=== PATIENT | female | born 1985 | race Caucasian/White ===

== ENCOUNTER → 2018-06-17 | Outpatient (CLI) | payer BC ==
[~2018-06-17] MED LIST: ACHD5005 PO; DOCU100C37 PO; IBUP-1773 PO; PREN1TAB71 PO
--- NOTE | 2018-06-17 13:27 | Diagnostic Imaging Report ---
INDICATION: Undergoing anatomical survey during normal . TECHNIQUE: Multiple real-time grayscale images were obtained over the gravid uterus. COMPARISON: None. FINDINGS: Single viable intrauterine currently in transverse orientation. Normal amount of amniotic fluid. Placenta is posterior somewhat low-lying, approximately 1.4 cm from the cervix. No definitive evidence for previa. The visualized anatomical structures including kidneys, bladder, stomach, intracranial structures, four-chamber heart, three-vessel cord and cord insertion site as well as spine appear unremarkable. There are echogenic foci at the left ventricle of the heart. Maternal adnexa are not imaged. Biometrical measurements are as follows: Biparietal 4.74 cm, age 20 weeks 3 days. Head circumference 17.64 cm, age 20 weeks 1 days. Abdominal circumference 15.51 cm, age 20 weeks 5 days. Femur length 3.2 cm, age 20 weeks 0 days. Sonographic estimate age: 20 weeks 3 days. Sonographic estimated date of delivery: 11/01/18. Estimated Weight: 348 gm (+/- 51 gm). LMP percentile: 40%. heart rate: 150 beats per minute. number: 1 of 1. IMPRESSION: 1. Single viable intrauterine currently in transverse orientation. Sonographically estimated age of 20 weeks 3 days for an estimated date of delivery November 01, 2018. 2. Echogenic foci at the left ventricle may be of no significance. The anatomical assessment is otherwise unremarkable. Dictated by: Dictated on workstation # [id number]
== END ==
LOC: RAD 09:48
PROVIDERS: ATTEND Obstetrics & Gynecology
DX: Z36.89 Encounter for other specified antenatal screening (principal); Z3A.20 20 weeks gestation of pregnancy
CPT/HCPCS: 76805

== ENCOUNTER 2018-10-18 05:40 | Outpatient (CLI) | payer BC ==
[~2018-10-18] VITALS: Ht 154.9 cm; Wt 87.1 kg
[2018-10-18] MEDS ORDERED: PREN1TAB18 PO (09:49)
== END 2018-10-18 12:26 | disposition home or self-care (01) ==
LOC: PREOP 05:40
PROVIDERS: ATTEND Obstetrics & Gynecology
DX: Z01.818 Encounter for other preprocedural examination (principal)

== ENCOUNTER 2018-10-25 05:53 | Inpatient (IN) | payer BC ==
[~2018-10-25] VITALS: Ht 154.9 cm; Wt 88.6 kg
[2018-10-25] VITALS (10 sets, daily range): BP systolic 91–133; BP diastolic 37–83
[~2018-10-25 05:53] MED LIST changes: +CITRIC ACID/SOB CIT (BICITRA) 30 ML UDC ONE; +FAMOTIDINE 20MG/2ML IV (PEPCID) ONE; +METOCLOPRAMIDE INJ 10 MG/2 ML (REGLAN) ONE; +PREN1TAB18 PO; +ceFAZolin 2 GM/50 ML NS 50 ML ONE
--- NOTE | 2018-10-25 06:00 | NUR ---
MADELINE CHAKRABORTY presented to unit via from ED, accompanied by s/o, with c/o PREVIOUS. MADELINE CHAKRABORTY weighed, gowned, voided, and to bed. EFHM and TOCO applied, VS taken. MADELINE CHAKRABORTY oriented to bed controls, call light, TV, heat, and A/C controls.
[2018-10-25] MEDS ORDERED: CITRIC ACID/SOB CIT (BICITRA) 30 ML UDC PO ONE (06:15)
[2018-10-25] MEDS ORDERED: METOCLOPRAMIDE INJ 10 MG/2 ML (REGLAN) IV ONE (06:15)
[2018-10-25] MEDS ORDERED: FAMOTIDINE 20MG/2ML IV (PEPCID) IV ONE (06:15)
[2018-10-25] MEDS ORDERED: ceFAZolin 2 GM/50 ML NS 50 ML IV ONE (06:15)
[2018-10-25] MEDS: LACTATED RINGERS 1,000 ML IV PRN ×3 (06:29→07:09)
[2018-10-25 06:32] LABS: BASOPHILS % (AUTO) 0 % (0-10); EOSINOPHILS # (AUTO) 0.1 10^3/uL (0.0-0.3); EOSINOPHILS % (AUTO) 1 % (0-10); HEMATOCRIT 38 % (35-52); HEMOGLOBIN 12.7 G/DL (11.5-16.0); LYMPHOCYTES # (AUTO) 2.3 X 10^3 (1.0-4.0); LYMPHOCYTES % (AUTO) 23 % (12-44); MEAN CORPUSCULAR HEMOGLOBIN 29 PG (25-34); MEAN CORPUSCULAR HGB CONC 34 G/DL (32-36); MEAN CORPUSCULAR VOLUME 87 FL (80-99); MEAN PLATELET VOLUME 12.2 FL (7.4-10.4); MONOCYTES % (AUTO) 9 % (0-12); NEUTROPHILS # (AUTO) 6.8 X 10^3 (1.8-7.8); NEUTROPHILS % (AUTO) 67 % (42-75); PLATELET COUNT 205 10^3/uL (130-400); RED CELL DISTRIBUTION WIDTH 13.6 % (10.0-14.5); WHITE BLOOD COUNT 10.2 10^3/uL (4.3-11.0)
[2018-10-25] MEDS ORDERED: fentaNYL INJECTION 100 MCG/2 ML AMP ONE (07:04)
[2018-10-25] MEDS ORDERED: BUPIVACAINE 0.5% 30 ML (SENSORCAINE) VIAL ONE (07:04)
[2018-10-25] MEDS ORDERED: OXYTOCIN/NORMAL SALINE 1,000 ML IV ONE (07:16)
--- NOTE | 2018-10-25 07:17 | History & Physical-OB ---
OB - Chief Complaint & HPI Date/Time Date of Admission: Date of Admission: Oct 25, 2018 at 05:53 Date seen by a Provider: Oct 25, 2018 Time Seen by a Provider: 07:00 Chief Complaint/History OB-Reason for Admission/Chief: Section Hx : 2 Hx Para: 1 Expected Date of Delivery: Nov 01, 2018 Gestational Age in Weeks: 39 Indication for : desires repeat Admission Nurse Assessment Rev: Yes History of Labs A pos Antibody neg RI RPR NR HBsAg NR HIV NR GC neg GBS neg Allergies and Home Medications Allergies Coded Allergies: No Known Drug Allergies (Unverified , 10/18/18) Home Medications Vit/Iron Fumarate/FA 1 Each Tablet, 1 EACH PO DAILY, (Reported) Patient Home Medication List Home Medication List Reviewed: Yes OB - History Hx of Present Care: Yes Ultrasounds: Normal mid trimester US Obstetrical Complications: None Medical Complications: None Delivery History Hx Blood Disorders: No Adverse Rxn to Tranfusion: No (N/A) Patient Past Medical History na Social History/Family History HIV/AIDS: No Sexually Transmitted Disease: No Alcohol Use: Denies Use Recreational Drug Use: No Immunizations Hepatitis A: Yes Hepatitis B: Yes Tetanus Booster (TDap): Less than 5yrs Date of Influenza Vaccine: Jan 04, 2015 OB - Admission Exam Physical Exam Vitals: Vital Signs 10/25/18 06:37 Temp 97.6 Pulse 81 Resp 18 B/P (MAP) 122/82 (95) O2 Delivery Room Air HEENT: NCAT Heart: Rhythm Normal Lungs: Clear Abdomen: Gravid Extremities: Normal Reflexes: Normal Heart Rate: 130's Accelerations: Accelerations Present Decelerations: No Decelerations Short Term Variability: Present Care Home Variability: Average (6-25) Contractions on Admission: 6-10 Minutes Apart Labs Laboratory Tests Test 10/25/18 06:20 Range/Units White Blood Count 10.2 4.3-11.0 10^3/uL Red Blood Count 4.38 4.35-5.85 10^6/uL Hemoglobin 12.7 11.5-16.0 G/DL Hematocrit 38 35-52 % Mean Corpuscular Volume 87 80-99 FL Mean Corpuscular Hemoglobin 29 25-34 PG Mean Corpuscular Hemoglobin Concent 34 32-36 G/DL Red Cell Distribution Width 13.6 10.0-14.5 % Platelet Count 205 130-400 10^3/uL Mean Platelet Volume 12.2 H 7.4-10.4 FL Neutrophils (%) (Auto) 67 42-75 % Lymphocytes (%) (Auto) 23 12-44 % Monocytes (%) (Auto) 9 0-12 % Eosinophils (%) (Auto) 1 0-10 % Basophils (%) (Auto) 0 0-10 % Neutrophils # (Auto) 6.8 1.8-7.8 X 10^3 Lymphocytes # (Auto) 2.3 1.0-4.0 X 10^3 Monocytes # (Auto) 1.0 0.0-1.0 X 10^3 Eosinophils # (Auto) 0.1 0.0-0.3 10^3/uL Basophils # (Auto) 0.0 0.0-0.1 10^3/uL OB - Assessment/Plan/Diagnosis Assessment Assessment: section Admission Dx 33 yo @ 39 weeks Previous GBS neg Admission Status: Inpatient Order (span 2 midnights) Reason for Inpatient Admission: Repeat Plan Plan: Section STEVIE VÁSQUEZ DO Oct 25, 2018 07:17
[2018-10-25] MEDS ORDERED: OXYTOCIN/NORMAL SALINE 500 ML IV SCH (07:19)
--- NOTE | 2018-10-25 07:23 | Discharge Inst-Women's Service ---
Discharge Inst-Women's Serv Depart Medication/Instructions New, Converted or Re-Newed RX: RX on Chart Final Diagnosis POD 2 RLTCS Consults/Follow Up Additional Follow Up: Yes Orders/Referrals Dr. Lin in 7-10 days and in 6 weeks Activity Activity: Activity as Tolerated Driving Instructions: No Driving for 1 Week NO SMOKING: NO SMOKING Nothing Inside Vagina: No Douching, No [place], No Tampons Diet Discharge Diet: No Restrictions Symptoms to Report to : Bleeding Excessive, Pain Increased, Fever Over 101 Degrees F, Vaginal Bleeding Increase, Questions/Concerns For Any Problems or Questions: Contact Your Physician Skin/Wound Care Infection Signs and Symptoms: Increased Redness, Foul Odor of Wound, Increased Drainage, Skin Itchy or Has a Rash, Increased Swelling, Temperature Above 101 F Operative Area Clean and Dry: Keep Incision Clean/Dry Stitches/[place]/Dermabond: Dermabond, Care of Stitches Bathing Instructions: STEVIE Davies DO Oct 25, 2018 07:23
[2018-10-25] MEDS ORDERED: ACHD5005 PO (07:25)
[2018-10-25] MEDS ORDERED: DOCU100C37 PO (07:25)
[2018-10-25] MEDS ORDERED: IBUP-844 PO (07:25)
[2018-10-25] MEDS ORDERED: ONDANSETRON 4 MG/2 ML (SDV) Z0FRAN IVP PRN (07:30)
[2018-10-25] MEDS ORDERED: MEASLES,MUMPS,RUBELLA 1 EA INJ SC SCH (07:30)
[2018-10-25] MEDS ORDERED: TETANUS,DIPTH,PERTUSS P/F (BOOSTRIX) 0.5 ML VIAL IM SCH (07:30)
--- NOTE | 2018-10-25 10:01 | NUR ---
RT notified of IS ordered for pt.
[2018-10-25] MEDS: KETOROLAC 30 MG/ML VIAL IV SCH ×2 (10:35→17:30)
--- NOTE | 2018-10-25 10:40 | NUR ---
Transferred via bed to room 308. Oriented to room, call light and surroundings. visitors to bedside. IV fluids pitocin infusing to pump as ordered.
[2018-10-25] MEDS ORDERED: CATHETER FLUSH 10 ML SYR IV SCH (14:00)
[2018-10-25] MEDS: HYDROcodone/APAP 5 MG/325 MG (LORTAB) TAB PO PRN ×2 (14:09→21:02)
[2018-10-25] MEDS: METOCLOPRAMIDE 10 MG (REGLAN) TAB PO SCH (14:11)
--- NOTE | 2018-10-25 14:15 | NUR ---
Assisted up to void, void, pericare pad changed and back to bed.
--- NOTE | 2018-10-25 16:24 | OPERATIVE REPORT ---
DATE OF SERVICE: 10/25/2018 PREOPERATIVE DIAGNOSES: 1. A 33-year-old G2, P1 at 39 weeks gestation. 2. Previous section. POSTOPERATIVE DIAGNOSES: 1. A 33-year-old G2, P1 at 39 weeks gestation. 2. Previous section. PROCEDURE: Repeat low transverse section. SURGEON: Ramon Lin DO. ANESTHESIA: Spinal. ESTIMATED BLOOD LOSS: 500 mL. URINE OUTPUT: 75 mL clear at the end of the procedure. FLUIDS: 1100 mL of lactated Ringer solution. FINDINGS: A live female infant weighing 8 pounds 14 ounces, Apgars of 8 and 9. Grossly normal appearing uterus, bilateral fallopian tubes and ovaries with multiple subserosal fibroids that are under 2 cm in diameter. SPECIMENS SENT: None. INDICATIONS FOR PROCEDURE: This 33-year-old female is a patient who had sought care in my office. They had been uncomplicated with the exception of a previous section as well as an elevated 1-hour glucose tolerance test, 3 hour was within normal limits. Otherwise, she had no issues throughout her . She desired repeat . Risk of this was reviewed with the patient versus proceeding with the back or trial of labor. After all of her questions were answered in the care visits, she was counseled extensively about risk, recovery timeframe, which she was familiar with her previous . Risks were again reviewed in the preoperative area and after all her questions were answered, consent was obtained and the patient was taken to the operating room. OPERATIVE REPORT IN DETAIL: Once in the operating room, spinal anesthesia was found to be adequate. She was placed in supine position with leftward tilt, prepped and draped in normal sterile fashion. A timeout was performed. A Pfannenstiel skin incision was then made through the previously existing scar using knife and carried down to the underlying fascia using Bovie cautery. Fascial incision extended laterally using Bovie cautery. Superior aspect of the fascial incision was then grasped with Micha clamps, tented upward and dissected off the underlying rectus muscles. The inferior aspect of the fascial incision was then grasped with Micha clamps, tented upward and dissected off the underlying rectus muscles. The rectus muscle was then dissected down the midline using Metzenbaum scissors, which exposed the peritoneum, which I entered bluntly and extended using blunt traction. I placed an Jose ring retractor into the peritoneal incision, which offers excellent lateral sidewall retraction. I then identified the lower uterine segment, which was found to be thinned out. I made a low transverse incision into the uterus until membranes were visualized, at which point I extended the uterine incision laterally and superiorly using bandage scissors. Amniotomy was performed during the process of doing this. Clear fluid was noted. The was found in the vertex presentation. With gentle fundal pressure, the 's head was elevated up to the incision, where it was delivered and nares and oropharynx were bulb suctioned. Anterior and posterior shoulders were delivered. was then brought to the operative field, where the cord was doubly clamped and cut and infant was handed off to waiting nurses in attendance. Cord blood was collected. Three vessel cord was intact. Placenta was delivered spontaneously thereafter. IV Pitocin was initiated to facilitate uterine contraction. Uterine fundus became firmer with bimanual massage. Uterus was then exteriorized and cleared of all endometrial clots and debris. I then proceeded with closing the uterine incision using 0 Vicryl suture in running locked fashion. Second layer of imbricating 0 Monocryl was placed. Excellent hemostasis was noted after doing this. I then placed the uterus back within the pelvis and copiously irrigated the pelvis using normal saline. There was no active bleeding noted from any of my dissection planes. I placed Interceed antiadhesive over my low transverse incision and proceeded with closing the peritoneum using 3-0 Vicryl suture in running fashion. The rectus muscle was reapproximated using 3-0 Vicryl suture in interrupted fashion. The fascia was reapproximated using 0 Vicryl suture in running fashion. The subcutaneous tissue was reapproximated using 3-0 plain interrupted subcutaneous stitch and the skin was reapproximated using 4-0 Monocryl in a running subcuticular. Dermabond was applied to the incision and sterile dressing with adhesive white tape. The patient tolerated the procedure well and was taken to recovery area in stable condition. Lap and sponge counts were correct at the end of the procedure. Instrument counts were correct as well. Two grams of Ancef was given preoperatively for infection prophylaxis. Job ID: [id number] DocumentID: [id number] Dictated Date: 10/25/2018 08:56:35 Sexual Assault Counselor Date: 10/25/2018 16:24:34 Dictated By: DO RUSSELL DAY
--- OUTSIDE RECORDS SUMMARY | 2018-10-25 17:01 | XMS REPORT ---
Author Author Shayy Norton [facility] Address [address] [place], [place] [id number] Care Team Providers Care It Business Systems Analyst Name Role Phone Shayy Norton PCP Unavailable Allergies and Adverse Reactions Name Reaction Notes NO KNOWN DRUG ALLERGIES Plan of Treatment Not available. Medications Active Name Start Date Estimated Completion Date SIG Comments ketoconazole 2 % topical shampoo 02/19/2015 apply to the affected area(s), lather, leave in place for 5 minutes, and then rinse off with water by topical route once daily for 1-2 weeks until clear EpiPen 0.3 mg/0.3 mL (1:1,000) injection auto-injector 02/19/2015 inject 0.3 milliliter (0.3 mg) by intramuscular route once as needed for anaphylaxis Name Start Date Expiration Date SIG Comments Bactrim DS 800-160 mg oral tablet 07/26/2012 07/31/2012 take 1 tablet by oral route every 12 hours for 5 days Bactrim DS 800-160 mg oral tablet 11/26/2012 12/06/2012 take 1 tablet by oral route every 12 hours for 10 days Microgestin Fe 1.5/30 (28) 1.5 mg-30 mcg (21)/75 mg (7) oral tablet 12/22/2012 11/23/2013 take 1 tablet by oral route once daily for 28 days Discontinued Name Start Date Discontinued Date SIG Comments Zithromax Z-Vinnie 250 mg oral tablet 04/08/2013 12/03/2013 Take 2 tablets the first day (500 mg) followed by 1 tablet (250 mg) days 2-5. for 5 days Flonase 50 mcg/actuation nasal spray,suspension 04/08/2013 02/19/2015 inhale 1 spray in each nostril by nasal route once daily for 7 days Problem List Description Status Onset *No known medical problems Active Vital Signs Date Time BP-Sys(mm[Hg] BP-Zora(mm[Hg]) HR(bpm) RR(rpm) Temp WT HT HC BMI BSA BMI Percentile O2 Sat(%) 02/19/2015 3:58:00 PM 126 mmHg 72 mmHg 89 bpm 18 rpm 97 F 167.187 lbs 61 in 31.59 kg/m2 1.81 m2 100 % 04/24/2014 9:20:00 AM 103 mmHg 71 mmHg 79 bpm 18 rpm 97.3 F 148 lbs 61 in 27.9641 kg/m 1.6998 m 100 % 12/16/2013 8:27:00 AM 110 mmHg 80 mmHg 70 bpm 18 rpm 97.8 F 149.4 lbs 61 in 28.23 kg/m2 1.71 m2 98 % 12/03/2013 9:08:00 AM 124 mmHg 66 mmHg 64 bpm 18 rpm 96.8 F 150 lbs 61 in 28.342 kg/m 1.7112 m 99 % 04/08/2013 2:06:00 PM 124 mmHg 74 mmHg 93 bpm 18 rpm 97.4 F 151.375 lbs 61 in 28.60 kg/m2 1.72 m2 99 % 12/22/2012 8:35:00 AM 103 mmHg 63 mmHg 83 bpm 18 rpm 97.1 F 142.2 lbs 61 in 26.8682 kg/m 1.6662 m 98 % 11/25/2012 2:38:00 PM 115 mmHg 77 mmHg 98 bpm 20 rpm 98.9 F 148.8 lbs 61 in 28.12 kg/m2 1.70 m2 100 % 07/21/2012 8:35:00 AM 100 mmHg 60 mmHg 82 bpm 20 rpm 97.8 F 150.6 lbs 61 in 28.4553 kg/m 1.7147 m 98 % Social History Name Description Comments Tobacco Never smoker Alcohol rarely History of Procedures Date Ordered Description Order Status 07/21/2012 12:00 AM URINALYSIS AUTO W/O SCOPE Reviewed 07/21/2012 12:00 AM URINE CULTURE/COLONY COUNT Returned 11/25/2012 12:00 AM THER/PROPH/DIAG INJ SC/IM Reviewed 11/25/2012 12:00 AM Decadron, Per 1 Mg [facility]# [address]-70 Reviewed 11/25/2012 12:00 AM Depo-Medrol, Per 80 Mg [facility]#[id number] Reviewed 12/03/2013 12:00 AM THER/PROPH/DIAG INJ SC/IM Reviewed 12/03/2013 12:00 AM Depo-Medrol 80 mg [facility] [place]#[address]-34 Reviewed 12/03/2013 12:00 AM Decadron 8 mg [facility] [place]# [address]-64 Reviewed 12/16/2013 12:00 AM TISSUE EXAM FOR FUNGI Returned 12/16/2013 12:00 AM SMEAR WET MOUNT SALINE/INK Returned 04/24/2014 12:00 AM COMPLETE CBC W/AUTO DIFF WBC Returned 04/24/2014 12:00 AM COMPREHEN METABOLIC PANEL Returned 04/24/2014 12:00 AM ASSAY THYROID STIM HORMONE Returned Results Summary Data and Description Results 12/16/2013 11:38 AM WET PREP NO TRICH SEEN CLUE CELLS NONE SEEN 05/01/2014 8:50 AM TSH 1.960 uIU/mLGLUCOSE 92.0 mg/dLSODIUM 141.0 mmol/LPOTASSIUM 4.20 mmol/LCHLORIDE 106.0 mmol/LCO2 25.0 mmol/LBUN 9.0 mg/dLCREATININE 0.70 mg/dLSGOT/AST 20.0 IU/LSGPT/ALT 26.0 IU/LALK PHOS 63.0 IU/LTOTAL PROTEIN 7.10 g/dLALBUMIN 4.60 g/dLTOTAL BILI 0.80 mg/dLCALCIUM 9.20 mg/dLeGFR >60 mL/min/1.73 m2WBC 7.2 RBC 4.59 HGB 13.40 g/dLHCT 40.0 %MCV 87.0 fLMCH 29.20 pgMCHC 33.50 g/dLRDW CV 12.70 %MPV 10.90 fLPLT 249 %NEUT 61.60 %%LYMP 31.10 %%MONO 6.20 %%EOS 0.80 %%BASO 0.30 %#NEUT 4.44 #LYMP 2.24 #MONO 0.45 #EOS 0.06 #BASO 0.02 History Of Immunizations Not available. History of Past Illness Name Date of Onset Comments *No known medical problems General medical examination; routine general medical examination at a health care facility Jul 21 2012 8:43AM Dysuria Jul 21 2012 8:43AM Wasp sting Nov 25 2012 2:42PM Wasp sting Nov 26 2012 9:14AM General medical examination; routine general medical examination at a health care facility Dec 22 2012 8:41AM Contraception, Oral Prescription Dec 22 2012 8:41AM Sinusitis, Acute Apr 08 2013 2:09PM Upper Respiratory Infections Apr 08 2013 2:09PM Dermatitis Dec 03 2013 9:10AM Sting, wasp Dec 03 2013 9:10AM Routine gynecological examination Dec 16 2013 8:31AM Vaginal Discharge Dec 16 2013 8:31AM Fatigue Apr 24 2014 9:23AM Family planning counseling Apr 24 2014 9:23AM Routine adult health maintenance Apr 24 2014 9:23AM Tinea versicolor Feb 19 2015 4:00PM History of anaphylactic shock Feb 19 2015 4:00PM Payers Insurance Name Company Name Plan Name Plan Number Policy Number Policy Group Number Start Date [facility] [id number] Saturday, 2012 History of Encounters Visit Date Visit Type Provider 02/19/2015 Office visit Shayy Norton PSYCHIATRIC ORDERLY 04/24/2014 Office visit Roxy Vargas PSYCHIATRIC ORDERLY 12/16/2013 Office visit Roxy Vargas PSYCHIATRIC ORDERLY 12/03/2013 Office visit Joel Roberto PA-C 04/08/2013 Office visit Yamile Adamson PSYCHIATRIC ORDERLY 12/22/2012 Office visit Roxy Vargas PSYCHIATRIC ORDERLY 11/25/2012 Office visit Roxy Vargas PSYCHIATRIC ORDERLY 07/21/2012 Office visit Roxy Vargas PSYCHIATRIC ORDERLY
--- OUTSIDE RECORDS SUMMARY | 2018-10-25 17:02 | XMS REPORT | Clinical Summary ---
Author Author Admin, [place] Organization [facility] Address Unknown Phone Unavailable Allergies, Adverse Reactions, Alerts Allergy Name Reaction Description Start Date Severity Status Provider BEE STINGS Critical Active Chase Guaman DO WASP STING Severe Active Chase Saundra Guaman DO Conditions or Problems Problem Name Problem Code Onset Date Status Entry Date Provider Comment Standard Description Annotate SINUSITIS, ACUTE 461.9 Active Baljeet Moreno MD Acute sinusitis, unspecified BMI 35-35.9 Active Chase Guaman DO Body Mass Index 35.0-35.9, adult Morbid obesity due to excess calories 278.00 Active Chase Guaman DO Obesity, unspecified Tinea versicolor 111.0 Active Chase Saundra Guaman DO Pityriasis versicolor Medication List Medication Instructions Start Date Stop Date Generic Name ND Status Provider Patient Instruction VITAMIN TABLET 1 tablet by mouth once daily VIT-FE FUMARATE- FA TABS 52908810771 Active Chase Guaman DO Active AVIANE 0.1-20 MG-MCG ORAL TABLET DIRECTED LEVONORGESTREL- ETHINYL ESTRAD 44212427095 No Longer Active Chase Guaman DO Active PREDNISONE 20 MG ORAL TABLET 1 tab twice daily for 3 day, then one daily for three days PREDNISONE 89277024584 No Longer Active Chase Guaman DO Active AMOXICILLIN 500 MG ORAL CAPSULE 1 tab by mouth 3 times daily AMOXICILLIN 10849390624 No Longer Active Baljeet Moreno MD Active PREDNISONE 20 MG ORAL TABLET 1 tab twice daily for 3 day, then one daily for three days PREDNISONE 20 MG ORAL TABLET 158112 PREDNISONE Inactive AVIANE 0.1-20 MG-MCG ORAL TABLET DIRECTED AVIANE 0.1- 20 MG-MCG ORAL TABLET 302154 LEVONORGESTREL-ETHINYL ESTRAD Inactive AMOXICILLIN 500 MG ORAL CAPSULE 1 tab by mouth 3 times daily AMOXICILLIN 500 MG ORAL CAPSULE 215099 AMOXICILLIN Inactive Vital Signs Date Name Value Unit Range Description blood pressure, diastolic, repeated by physician 70 BP mckeon blood pressure, diastolic 70 mm[Hg] BP mckeon blood pressure, systolic, repeated by physician 115 BP sys blood pressure, systolic 115 mm[Hg] BP sys height E&M 61 [in_us] Bdy height pulse rate E&M 89 /min Heart rate temperature E&M 98.4 [degF] Body temperature weight E&M 186 [lb_av] Weight Measured Diagnostic Results Date Name Value Unit Range Description Office Visit: Establish Care - Chemistry HDL cholesterol, serum, target level 40 mg/dL cholesterol, target level 200 mg/dL triglyceride, target level 150 mg/dL Encounters Code Encounter Date Provider Facility CPT-29544 [id number] Vst-Est Level III 14:15:26 CDT Chase Guaman DO [facility] CPT-45880 Level 3 New Patient 15:51:50 CDT Baljeet Moreno MD [facility]
--- OUTSIDE RECORDS SUMMARY | 2018-10-25 17:02 | XMS REPORT ---
Author Author Shayy Norton [facility] Address [address] [place], [place] [id number] Care Team Providers Care Ton Container Shipper Name Role Phone Shayy Norton PCP Unavailable Shayy Norton PreferredProvider Unavailable Allergies and Adverse Reactions Name Reaction [...] intramuscular route once as needed for anaphylaxis EpiPen 0.3 mg/0.3 mL (1:1,000) injection auto-injector 02/19/2015 inject 0.3 milliliter (0.3 mg) by intramuscular route once as needed for anaphylaxis Diflucan 150 mg oral tablet 01/07/2017 2 tablets po x1 then repeat in 1 week ketoconazole 2 % topical cream 01/07/2017 apply to the affected area(s) by topical route once daily Name Start Date Expiration Date SIG Comments [...] HC BMI BSA BMI Percentile O2 Sat(%) 01/07/2017 2:23:00 PM 116 mmHg 60 mmHg 90 bpm 18 rpm 97 F 171 lbs 61 in 32.31 kg/m2 1.83 m2 99 % 02/19/2015 3:58:00 PM 126 mmHg 72 mmHg 89 bpm 18 rpm 97 F 167.187 lbs 61 in 31.5895 kg/m 1.8066 m 100 % 04/24/2014 9:20:00 AM 103 mmHg 71 mmHg 79 bpm 18 rpm 97.3 F 148 lbs 61 in 27.96 kg/m2 1.70 m2 100 % 12/16/2013 8:27:00 AM 110 mmHg 80 mmHg 70 bpm 18 rpm 97.8 F 149.4 lbs 61 in 28.2286 kg/m 1.7078 m 98 % 12/03/2013 9:08:00 AM 124 mmHg 66 mmHg 64 bpm 18 rpm 96.8 F 150 lbs 61 in 28.34 kg/m2 1.71 m2 99 % 04/08/2013 2:06:00 PM 124 mmHg 74 mmHg 93 bpm 18 rpm 97.4 F 151.375 lbs 61 in 28.6018 kg/m 1.7191 m 99 % 12/22/2012 8:35:00 AM 103 mmHg 63 mmHg 83 bpm 18 rpm 97.1 F 142.2 lbs 61 in 26.87 kg/m2 1.67 m2 98 % 11/25/2012 2:38:00 PM 115 mmHg 77 mmHg 98 bpm 20 rpm 98.9 F 148.8 lbs 61 in 28.1152 kg/m 1.7044 m 100 % 07/21/2012 8:35:00 AM 100 mmHg 60 mmHg 82 bpm 20 rpm 97.8 F 150.6 lbs 61 in 28.46 kg/m2 1.71 m2 98 % Social History Name Description Comments Tobacco Never smoker Alcohol rarely History of Procedures Date Ordered Description Order Status 07/21/2012 12:00 AM URINALYSIS AUTO W/O SCOPE Reviewed 07/21/2012 12:00 AM URINE CULTURE/COLONY COUNT Reviewed 11/25/2012 12:00 AM THER/PROPH/DIAG INJ SC/IM Reviewed 11/25/2012 12:00 AM Decadron, Per 1 Mg [facility]# [address]-10 Reviewed 11/25/2012 12:00 AM Depo-Medrol, Per 80 Mg [facility]#0885-3988-79 Reviewed 12/03/2013 12:00 AM THER/PROPH/DIAG INJ SC/IM Reviewed 12/03/2013 12:00 AM Depo-Medrol 80 mg [facility]#[address]-11 Reviewed 12/03/2013 12:00 AM Decadron 8 mg [facility]# [address]-90 Reviewed 12/16/2013 12:00 AM TISSUE EXAM FOR FUNGI Reviewed 12/16/2013 12:00 AM SMEAR WET MOUNT SALINE/INK Reviewed 04/24/2014 12:00 AM COMPLETE CBC W/AUTO DIFF WBC Reviewed 04/24/2014 12:00 AM COMPREHEN METABOLIC PANEL Reviewed 04/24/2014 12:00 AM ASSAY THYROID STIM HORMONE Reviewed Results Summary Date and Description Results 12/16/2013 11:38 AM WET PREP NO TRICH SEEN CLUE CELLS NONE SEEN 05/01/2014 8:50 AM TSH 1.960 uIU/mLGLUCOSE 92.0 mg/dLSODIUM 141.0 mmol/LPOTASSIUM 4.20 mmol/LCHLORIDE 106.0 mmol/LCO2 25.0 mmol/LBUN 9.0 mg/dLCREATININE 0.70 mg/dLSGOT/AST 20.0 IU/LSGPT/ALT 26.0 IU/LALK PHOS 63.0 IU/LTOTAL PROTEIN 7.10 g/dLALBUMIN 4.60 g/dLTOTAL BILI 0.80 mg/dLCALCIUM 9.20 mg/dLAGE 30 GFR NonAA 98 GFR AA 119 eGFR >60 mL/min/1.73 m2eGFR AA* >60 WBC 7.2 RBC 4.59 HGB 13.40 g/dLHCT 40.0 %MCV 87.0 fLMCH 29.20 pgMCHC 33.50 g/dLRDW SD 41 RDW CV 12.70 %MPV 10.90 fLPLT 249 NRBC# 0.00 NRBC% 0.0 %NEUT 61.60 %%LYMP 31.10 %%MONO 6.20 %%EOS 0.80 %%BASO 0.30 %#NEUT 4.44 #LYMP 2.24 #MONO 0.45 #EOS 0.06 #BASO 0.02 MANUAL DIFF NOT IND History Of Immunizations Not available. History of [...] of anaphylactic shock Feb 19 2015 4:00PM Tinea versicolor Jan 07 2017 2:25PM Payers Insurance Name Company Name Plan Name Plan Number Policy Number Policy Group Number Start Date [facility] [id number] Saturday, 2012 History of Encounters Visit Date Visit Type Provider 01/07/2017 Office visit Shayy Norton RESERVATIONS CLERK 02/19/2015 Office visit Shayy Norton RESERVATIONS CLERK 04/24/2014 Office visit Roxy Vargas RESERVATIONS CLERK 12/16/2013 Office visit Roxy Vargas RESERVATIONS CLERK 12/03/2013 Office visit Joel Roberto PA-C 04/08/2013 Office visit Yamile Adamson RESERVATIONS CLERK 12/22/2012 Office visit Roxy Vargas RESERVATIONS CLERK 11/25/2012 Office visit Roxy Vargas RESERVATIONS CLERK 07/21/2012 Office visit Roxy Vargas RESERVATIONS CLERK
--- OUTSIDE RECORDS SUMMARY | 2018-10-25 17:02 | XMS REPORT | Clinical Summary ---
Author Author Admin, [facility] Organization [facility] Address Unknown Phone Unavailable Allergies, Adverse Reactions, Alerts Allergy Name Reaction Description Start Date Severity Status Provider Allergies Unknown Conditions or Problems Problem Name Problem Code Onset Date Status Entry Date Provider Comment Standard Description Annotate SINUSITIS, ACUTE 461.9 Active Baljeet Moreno MD Acute sinusitis, unspecified Medication List Medication Instructions Start Date Stop Date Generic Name [facility] Status Provider Patient Instruction PREDNISONE 20 MG ORAL TABLET 1 tab twice daily for 3 day, then one daily for three days PREDNISONE 65087866800 Active Baljeet Moreno MD Active AMOXICILLIN 500 MG ORAL CAPSULE 1 tab by mouth 3 times daily AMOXICILLIN 98448905688 Active Blajeet Moreno MD Active AVIANE 0.1-20 MG-MCG ORAL TABLET DIRECTED LEVONORGESTREL-ETHINYL ESTRAD 02038517180 Active Baljeet Moreno MD Active Vital Signs Date Name Value Unit Range Description blood pressure, diastolic 74 mm[Hg] BP mckeon blood pressure, systolic 120 mm[Hg] BP sys pulse rate E&M 105 /min Heart rate temperature E&M 98.6 [degF] Body temperature weight E&M 164 [lb_av] Weight Measured Encounters Code Encounter Date Provider Facility CPT-15995 Level 3 New Patient 15:51:50 CDT Baljeet Moreno MD [facility]
--- OUTSIDE RECORDS SUMMARY | 2018-10-25 17:02 | XMS REPORT | Clinical Summary ---
Author Author Admin, [place] Organization [facility] Address Unknown Phone Unavailable Allergies, Adverse Reactions, [...] mouth once daily VIT-FE FUMARATE- FA TABS 08075593419 Active Chase Guaman DO Active AVIANE 0.1-20 MG-MCG ORAL TABLET DIRECTED LEVONORGESTREL- ETHINYL ESTRAD 14562208353 No Longer Active Chase Guaman DO Active PREDNISONE 20 MG ORAL TABLET 1 tab twice daily for 3 day, then one daily for three days PREDNISONE 03987317142 No Longer Active Chase Guaman DO Active AMOXICILLIN 500 MG ORAL CAPSULE 1 tab by mouth 3 times daily AMOXICILLIN 13995888478 No Longer Active Baljeet Moreno MD Active PREDNISONE 20 MG ORAL TABLET 1 tab twice daily for 3 day, then one daily for three days PREDNISONE 20 MG ORAL TABLET 765379 PREDNISONE Inactive AVIANE 0.1-20 MG-MCG ORAL TABLET DIRECTED AVIANE 0.1- 20 MG-MCG ORAL TABLET 997139 LEVONORGESTREL-ETHINYL ESTRAD Inactive AMOXICILLIN 500 MG ORAL CAPSULE 1 tab by mouth 3 times daily AMOXICILLIN 500 MG ORAL CAPSULE 859392 AMOXICILLIN Inactive Vital Signs Date Name Value [...] mg/dL Encounters Code Encounter Date Provider Facility CPT-90614 [id number] Vst-Est Level III 14:15:26 CDT Chase Guaman DO [facility] CPT-32785 Level 3 New Patient 15:51:50 CDT Baljeet Moreno MD [facility]
--- OUTSIDE RECORDS SUMMARY | 2018-10-25 17:02 | XMS REPORT | Clinical Summary ---
Author Author Admin, [place] Organization [facility] Address Unknown Phone Unavailable Allergies, Adverse [...] to excess calories 278.00 Active Chase Guaman Obesity, unspecified Tinea versicolor 111.0 Active Chase Saundra Guaman DO Pityriasis versicolor Medication List Medication Instructions Start Date Stop Date Generic Name ND Status Provider Patient Instruction VITAMIN TABLET 1 tablet by mouth once daily VIT-FE FUMARATE- FA TABS 31343281826 Active hCase Guaman DO Active AVIANE 0.1-20 MG-MCG ORAL TABLET DIRECTED LEVONORGESTREL- ETHINYL ESTRAD 48097717750 No Longer Active Chase Guaman DO Active PREDNISONE 20 MG ORAL TABLET 1 tab twice daily for 3 day, then one daily for three days PREDNISONE 68303752181 No Longer Active Chase Guaman DO Active AMOXICILLIN 500 MG ORAL CAPSULE 1 tab by mouth 3 times daily AMOXICILLIN 66542211341 No Longer Active Baljeet Moreno MD Active PREDNISONE 20 MG ORAL TABLET 1 tab twice daily for 3 day, then one daily for three days PREDNISONE 20 MG ORAL TABLET 569392 PREDNISONE Inactive AVIANE 0.1-20 MG-MCG ORAL TABLET DIRECTED AVIANE 0.1- 20 MG-MCG ORAL TABLET 466735 LEVONORGESTREL-ETHINYL ESTRAD Inactive AMOXICILLIN 500 MG ORAL CAPSULE 1 tab by mouth 3 times daily AMOXICILLIN 500 MG ORAL CAPSULE 375784 AMOXICILLIN Inactive Vital Signs Date Name Value [...] mg/dL Encounters Code Encounter Date Provider Facility CPT-17804 [id number] Vst-Est Level III 14:15:26 CDT Chase Guaman DO [facility] CPT-74420 Level 3 New Patient 15:51:50 CDT Baljeet Moreno MD [facility]
--- OUTSIDE RECORDS SUMMARY | 2018-10-25 17:02 | XMS REPORT | Clinical Summary ---
Author Author Admin, [facility] Organization [facility] Address Unknown Phone Unavailable Allergies, Adverse Reactions, Alerts Allergy Name Reaction Description Start Date Severity Status Provider Allergies Unknown Conditions or Problems Problem Name Problem Code Onset Date Status Entry Date Provider Comment Standard Description Annotate SINUSITIS, ACUTE 461.9 Active Baljeet Moreno MD Acute sinusitis, unspecified Medication List Medication Instructions Start Date Stop Date Generic Name [facility] Status Provider Patient Instruction PREDNISONE 20 MG ORAL TABLET 1 tab twice daily for 3 day, then one daily for three days PREDNISONE 55445143109 Active Baljeet Moreno MD Active AMOXICILLIN 500 MG ORAL CAPSULE 1 tab by mouth 3 times daily AMOXICILLIN 05787878044 Active Baljeet Moreno MD Active AVIANE 0.1-20 MG-MCG ORAL TABLET DIRECTED LEVONORGESTREL-ETHINYL ESTRAD 28471105482 Active Baljeet Moreno MD Active Vital Signs Date Name Value Unit Range Description blood pressure, diastolic 74 mm[Hg] BP mckeon blood pressure, systolic 120 mm[Hg] BP sys pulse rate E&M 105 /min Heart rate temperature E&M 98.6 [degF] Body temperature weight E&M 164 [lb_av] Weight Measured Encounters Code Encounter Date Provider Facility CPT-02322 Level 3 New Patient 15:51:50 CDT Baljeet Moreno MD [facility]
--- OUTSIDE RECORDS SUMMARY | 2018-10-25 17:02 | XMS REPORT | Clinical Summary ---
Author Author Admin, [facility] Organization [facility] Address Unknown Phone Unavailable Allergies, Adverse Reactions, Alerts Allergy Name Reaction Description Start Date Severity Status Provider Allergies Unknown Conditions or Problems Problem Name Problem Code Onset Date Status Entry Date Provider Comment Standard Description Annotate SINUSITIS, ACUTE 461.9 Active Baljeet Moreno MD Acute sinusitis, unspecified Medication List Medication Instructions Start Date Stop Date Generic Name [facility] Status Provider Patient Instruction PREDNISONE 20 MG ORAL TABLET 1 tab twice daily for 3 day, then one daily for three days PREDNISONE 10138804068 Active Baljeet Moreno MD Active AMOXICILLIN 500 MG ORAL CAPSULE 1 tab by mouth 3 times daily AMOXICILLIN 98437129261 Active Baljeet Moreno MD Active AVIANE 0.1-20 MG-MCG ORAL TABLET DIRECTED LEVONORGESTREL-ETHINYL ESTRAD 75979511693 Active Baljeet Moreno MD Active Vital Signs Date Name Value Unit Range Description blood pressure, diastolic 74 mm[Hg] BP mckeon blood pressure, systolic 120 mm[Hg] BP sys pulse rate E&M 105 /min Heart rate temperature E&M 98.6 [degF] Body temperature weight E&M 164 [lb_av] Weight Measured Encounters Code Encounter Date Provider Facility CPT-03062 Level 3 New Patient 15:51:50 CDT Baljeet Moreno MD [facility]
--- OUTSIDE RECORDS SUMMARY | 2018-10-25 17:02 | XMS REPORT | Clinical Summary ---
Author Author Admin, [place] Organization [facility] Address Unknown Phone Unavailable Allergies, Adverse Reactions, Alerts Allergy Name Reaction Description Start Date Severity Status Provider BEE STINGS Critical Active Chase Guaman DO WASP STING Severe Active Chase Guaman DO Conditions or Problems Problem Name [...] mouth once daily VIT-FE FUMARATE- FA TABS 56414718809 Active Chase Guaman DO Active AVIANE 0.1-20 MG-MCG ORAL TABLET DIRECTED LEVONORGESTREL- ETHINYL ESTRAD 93361187120 No Longer Active Chase Guaman DO Active PREDNISONE 20 MG ORAL TABLET 1 tab twice daily for 3 day, then one daily for three days PREDNISONE 74026453020 No Longer Active Chase Guaman DO Active AMOXICILLIN 500 MG ORAL CAPSULE 1 tab by mouth 3 times daily AMOXICILLIN 78135274920 No Longer Active Baljeet Moreno MD Active PREDNISONE 20 MG ORAL TABLET 1 tab twice daily for 3 day, then one daily for three days PREDNISONE 20 MG ORAL TABLET 169646 PREDNISONE Inactive AVIANE 0.1-20 MG-MCG ORAL TABLET DIRECTED AVIANE 0.1- 20 MG-MCG ORAL TABLET 633942 LEVONORGESTREL-ETHINYL ESTRAD Inactive AMOXICILLIN 500 MG ORAL CAPSULE 1 tab by mouth 3 times daily AMOXICILLIN 500 MG ORAL CAPSULE 803474 AMOXICILLIN Inactive Vital Signs Date Name Value [...] mg/dL Encounters Code Encounter Date Provider Facility CPT-19381 [id number] Vst-Est Level III 14:15:26 CDT Chase Guaman DO [facility] CPT-45019 Level 3 New Patient 15:51:50 CDT Baljeet Moreno MD [facility]
--- OUTSIDE RECORDS SUMMARY | 2018-10-25 17:02 | XMS REPORT | Clinical Summary ---
Author Author Admin, E Organization [facility] Address Unknown Phone Unavailable Allergies, Adverse Reactions, Alerts Allergy Name Reaction Description Start Date Severity Status Provider BEE STINGS Critical Active Chase Saundra Guaman DO WASP STING Severe Active Chase [...] mouth once daily VIT-FE FUMARATE- FA TABS 13627013423 Active Chase Guaman DO Active AVIANE 0.1-20 MG-MCG ORAL TABLET DIRECTED LEVONORGESTREL- ETHINYL ESTRAD 30707410385 No Longer Active Chase Guaman DO Active PREDNISONE 20 MG ORAL TABLET 1 tab twice daily for 3 day, then one daily for three days PREDNISONE 27693758305 No Longer Active Chase Guaman DO Active AMOXICILLIN 500 MG ORAL CAPSULE 1 tab by mouth 3 times daily AMOXICILLIN 47895218693 No Longer Active Baljeet Moreno MD Active PREDNISONE 20 MG ORAL TABLET 1 tab twice daily for 3 day, then one daily for three days PREDNISONE 20 MG ORAL TABLET 173416 PREDNISONE Inactive AVIANE 0.1-20 MG-MCG ORAL TABLET DIRECTED AVIANE 0.1- 20 MG-MCG ORAL TABLET 015512 LEVONORGESTREL-ETHINYL ESTRAD Inactive AMOXICILLIN 500 MG ORAL CAPSULE 1 tab by mouth 3 times daily AMOXICILLIN 500 MG ORAL CAPSULE 517570 AMOXICILLIN Inactive Vital Signs Date Name Value [...] mg/dL Encounters Code Encounter Date Provider Facility CPT-00446 [id number] Vst-Est Level III 14:15:26 CDT Chase Guaman DO [facility] CPT-38852 Level 3 New Patient 15:51:50 CDT Baljeet Moreno MD [facility]
--- OUTSIDE RECORDS SUMMARY | 2018-10-25 17:03 | XMS REPORT | Clinical Summary ---
Author Author Admin, [facility] Organization [facility] Address Unknown Phone Unavailable Allergies, Adverse Reactions, Alerts Allergy Name Reaction Description Start Date Severity Status Provider Allergies Unknown Conditions or Problems Problem Name Problem Code Onset Date Status Entry Date Provider Comment Standard Description Annotate SINUSITIS, ACUTE 461.9 Active Baljeet Moreno MD Acute sinusitis, unspecified Medication List Medication Instructions Start Date Stop Date Generic Name [facility] Status Provider Patient Instruction PREDNISONE 20 MG ORAL TABLET 1 tab twice daily for 3 day, then one daily for three days PREDNISONE 34170071845 Active Baljeet Moreno MD Active AMOXICILLIN 500 MG ORAL CAPSULE 1 tab by mouth 3 times daily AMOXICILLIN 32865854185 Active Baljeet Moreno MD Active AVIANE 0.1-20 MG-MCG ORAL TABLET DIRECTED LEVONORGESTREL-ETHINYL ESTRAD 27090011319 Active Baljeet Moreno MD Active Vital Signs Date Name Value Unit Range Description blood pressure, diastolic 74 mm[Hg] BP mckeon blood pressure, systolic 120 mm[Hg] BP sys pulse rate E&M 105 /min Heart rate temperature E&M 98.6 [degF] Body temperature weight E&M 164 [lb_av] Weight Measured Encounters Code Encounter Date Provider Facility CPT-97839 Level 3 New Patient 15:51:50 CDT Baljeet Moreno MD [facility]
--- OUTSIDE RECORDS SUMMARY | 2018-10-25 17:03 | XMS REPORT | Clinical Summary ---
Author Author Admin, [facility] Organization [facility] Address Unknown Phone Unavailable Allergies, Adverse Reactions, Alerts Allergy Name Reaction Description Start Date Severity Status Provider Allergies Unknown Conditions or Problems Problem Name Problem Code Onset Date Status Entry Date Provider Comment Standard Description Annotate SINUSITIS, ACUTE 461.9 Active Baljeet Moreno MD Acute sinusitis, unspecified Medication List Medication Instructions Start Date Stop Date Generic Name [facility] Status Provider Patient Instruction PREDNISONE 20 MG ORAL TABLET 1 tab twice daily for 3 day, then one daily for three days PREDNISONE 44816541443 Active Baljeet Moreno MD Active AMOXICILLIN 500 MG ORAL CAPSULE 1 tab by mouth 3 times daily AMOXICILLIN 96220883697 Active Baljeet Moreno MD Active AVIANE 0.1-20 MG-MCG ORAL TABLET DIRECTED LEVONORGESTREL-ETHINYL ESTRAD 93627849497 Active Baljeet Moreno MD Active Vital Signs Date Name Value Unit Range Description blood pressure, diastolic 74 mm[Hg] BP mckeon blood pressure, systolic 120 mm[Hg] BP sys pulse rate E&M 105 /min Heart rate temperature E&M 98.6 [degF] Body temperature weight E&M 164 [lb_av] Weight Measured Encounters Code Encounter Date Provider Facility CPT-11217 Level 3 New Patient 15:51:50 CDT Baljeet Moreno MD [facility]
--- OUTSIDE RECORDS SUMMARY | 2018-10-25 17:03 | XMS REPORT | Continuity of Care Document ---
Author Organization Unknown Address Unknown Allergies There is no data. Medications There is no data. Problems Date Dx Coded Attending Type Code Diagnosis Diagnosed By 08/03/2017 J01.90 SINUSITIS, ACUTE 09/06/2018 B36.0 Tinea versicolor 09/06/2018 E66.01 Morbid obesity due to excess calories 09/06/2018 Z68.35 BMI 35-35.9 Procedures There is no data. Results There is no data. Encounters ACCT No. Visit Date/Time Discharge Status Pt. Type Provider Facility Loc./Unit Complaint [id number] 01/07/2017 15:17:00 01/07/2017 23:59:59 CLS Outpatient Shayy Norton [id number] 02/19/2015 16:50:21 02/19/2015 23:59:59 CLS Outpatient Shayy Norton [id number] 04/24/2014 10:12:44 04/24/2014 23:59:59 CLS Outpatient Roxy Vargas [id number] 12/16/2013 09:19:30 12/16/2013 23:59:59 CLS Outpatient Roxy Vargas [id number] 12/03/2013 10:06:06 12/03/2013 23:59:59 CLS Outpatient Joel Roberto [id number] 04/08/2013 14:59:03 04/08/2013 23:59:59 CLS Outpatient Yamile Adamson [id number] 10/22/2018 20:08:36 ACT Unknown [id number] 08/09/2018 07:00:48 08/09/2018 23:59:59 DIS Outpatient STEVIE VÁSQUEZ [facility]
--- NOTE | 2018-10-25 21:00 | NUR ---
pt sitting in bed, holding nb. assessment completed. pt requesting pain meds at this time. Lortab given. pt denies any further needs. will continue to monitor.
[2018-10-25] MEDS ORDERED: IBUPROFEN 600 MG (MOTRIN) TAB PO ONE (23:08)
[2018-10-25] MEDS: IBUPROFEN 600 MG (MOTRIN) TAB PO SCH (23:30)
[2018-10-26] MEDS: METOCLOPRAMIDE 10 MG (REGLAN) TAB PO SCH ×4 (01:50→23:52)
[2018-10-26] MEDS: HYDROcodone/APAP 5 MG/325 MG (LORTAB) TAB PO PRN ×2 (03:27→08:51)
[2018-10-26 04:00] VITALS: BP 118/77
[2018-10-26 05:18] LABS: BASOPHILS % (AUTO) 0 % (0-10); EOSINOPHILS % (AUTO) 0 % (0-10); HEMATOCRIT 31 % (35-52); HEMOGLOBIN 10.4 G/DL (11.5-16.0); LYMPHOCYTES # (AUTO) 2.1 X 10^3 (1.0-4.0); LYMPHOCYTES % (AUTO) 16 % (12-44); MEAN CORPUSCULAR HEMOGLOBIN 30 PG (25-34); MEAN CORPUSCULAR HGB CONC 34 G/DL (32-36); MEAN CORPUSCULAR VOLUME 89 FL (80-99); MEAN PLATELET VOLUME 11.8 FL (7.4-10.4); MONOCYTES # (AUTO) 1.5 X 10^3 (0.0-1.0); MONOCYTES % (AUTO) 12 % (0-12); NEUTROPHILS # (AUTO) 9.1 X 10^3 (1.8-7.8); NEUTROPHILS % (AUTO) 72 % (42-75); PLATELET COUNT 161 10^3/uL (130-400); RED CELL DISTRIBUTION WIDTH 13.7 % (10.0-14.5); WHITE BLOOD COUNT 12.7 10^3/uL (4.3-11.0)
[2018-10-26] MEDS: IBUPROFEN 600 MG (MOTRIN) TAB PO SCH ×4 (05:48→23:52)
--- NOTE | 2018-10-26 05:51 | NUR ---
ABDOMINAL DSG REMOVED. DERMBOND INTACT.
--- NOTE | 2018-10-26 07:35 | Postpartum Progress Note ---
Note Note Day # 1 Subjective: Patient is without complaints. Ambulating, voiding. Tolerating a regular diet without nausea or vomiting. Normal lochia. Pain is well controlled with oral pain medications. Objective: Physical Exam: General - Alert and oriented, no apparent distress Abdomen - Soft, appropriately tender to palpation, non-distended, fundus firm at umbilicus Extremities - no edema, negative Michael's bilaterally Incision- c/d/i Assessment: POD 1 RLTCS Acute blood loss anemia Plan: Routine care. Encourage breast feeding. Encourage ambulation. Ferrous sulfate supplementation. Plan for discharge tomorrow Vitals - Labs Vital Signs - I&O Vital Signs Date Time Temp Pulse Resp B/P (MAP) Pulse Ox O2 Delivery O2 Flow Rate FiO2 10/26/18 04:00 97.9 86 18 118/77 (91) 98 Room Air 10/25/18 23:30 97.8 95 18 129/79 (96) 98 Room Air 10/25/18 20:00 97.9 100 18 133/65 (87) 100 Room Air 10/25/18 14:06 98.0 102 18 118/69 (85) 100 Room Air 10/25/18 10:37 98.4 90 18 122/83 (96) 99 Room Air 10/25/18 09:30 96.9 18 100 Room Air 10/25/18 09:30 Room Air 10/25/18 09:15 96.7 16 100 Room Air 10/25/18 09:15 Room Air 10/25/18 09:00 97.0 18 100 Room Air 10/25/18 09:00 Room Air 10/25/18 08:45 Room Air 10/25/18 08:45 96.6 18 100 Room Air 10/25/18 08:33 97.3 16 98 Room Air I & O 10/26/18 06:59 Intake Total 2800 ml Output Total 1795 ml Balance 1005 ml Labs Laboratory Tests 10/26/18 05:05: White Blood Count 12.7H, Red Blood Count 3.50L, Hemoglobin 10.4L, Hematocrit 31L , Mean Corpuscular Volume 89, Mean Corpuscular Hemoglobin 30, Mean Corpuscular Hemoglobin Concent 34, Red Cell Distribution Width 13.7, Platelet Count 161, Mean Platelet Volume 11.8H, Neutrophils (%) (Auto) 72, Lymphocytes (%) (Auto) 16, Monocytes (%) (Auto) 12, Eosinophils (%) (Auto) 0, Basophils (%) (Auto) 0, Neutrophils # (Auto) 9.1H, Lymphocytes # (Auto) 2.1, Monocytes # (Auto) 1.5H, Eosinophils # (Auto) 0.0, Basophils # (Auto) 0.0 STEVIE VÁSQUEZ DO Oct 26, 2018 07:34
[2018-10-26 08:44] VITALS: BP 121/70
[2018-10-26] MEDS: DOCUSATE SODIUM 100 MG (COLACE) CAP PO SCH ×2 (08:48→20:28)
--- NOTE | 2018-10-26 12:37 | Anesthesia-Regional Post-Op ---
Regional Patient Condition Mental Status: Alert, Oriented x3 Circulation: Same as Pre-Op Headache: Absent Sensation: Full Recovery Motor Block: Absent Post Op Complications Complications None Follow Up Care/Instructions Patient Instructions None needed. Anesthesia/Patient Condition Patient is doing well, has C/O a sore back at the SAB site which is to be expected, stable vital signs, no apparent adverse anesthesia problems. CHARIS TORRES DO Oct 26, 2018 12:37
[2018-10-26] MEDS ORDERED: BUTORPHANOL INJ 2 MG/ML (STADOL) VIAL IV NR (15:45)
[2018-10-26 16:04] VITALS: BP 115/68
[2018-10-26 22:00] VITALS: BP 124/71
[2018-10-27 04:08] VITALS: BP 130/81
[2018-10-27] MEDS: IBUPROFEN 600 MG (MOTRIN) TAB PO SCH ×2 (06:05→11:53)
[2018-10-27] MEDS: METOCLOPRAMIDE 10 MG (REGLAN) TAB PO SCH (06:06)
[2018-10-27] MEDS: HYDROcodone/APAP 5 MG/325 MG (LORTAB) TAB PO PRN (06:07)
[2018-10-27 07:30] VITALS: BP 118/70
[2018-10-27] MEDS: DOCUSATE SODIUM 100 MG (COLACE) CAP PO SCH (07:30)
--- NOTE | 2018-10-27 08:15 | Postpartum Progress Note ---
Note Note Day # 2 Subjective: Patient is without complaints. Ambulating, voiding. Tolerating a regular diet without nausea or vomiting. Normal lochia. Pain is well controlled with oral pain medications. Objective: Physical Exam: General - Alert and oriented, no apparent distress Abdomen - Soft, appropriately tender to palpation, non-distended, fundus firm at umbilicus Extremities - no edema, negative Michael's bilaterally Incision- c/d/i Assessment: POD 2 RLTCS Plan: Routine care. Encourage breast feeding. Encourage ambulation. Ferrous sulfate supplementation. Plan for discharge today Vitals - Labs Vital Signs - I&O Vital Signs Date Time Temp Pulse Resp B/P (MAP) Pulse Ox O2 Delivery O2 Flow Rate FiO2 10/27/18 04:08 97.8 98 18 130/81 (97) 99 Room Air 10/26/18 22:00 97.5 86 18 124/71 (88) 97 Room Air 10/26/18 16:04 97.4 96 18 115/68 (84) 97 Room Air 10/26/18 08:44 97.4 94 18 121/70 (87) 98 Room Air I & O 10/27/18 07:00 Intake Total 2000 ml Output Total 2000 ml Balance 0 ml Labs Microbiology 10/25/18 MRSA Screen - Final, Complete MRSA not isolated STEVIE VÁSQUEZ DO Oct 27, 2018 08:15
--- NOTE | 2018-10-27 10:35 | NUR ---
Discharge instructions given with pt verbalized understanding. Baby may not be discharged yet until possible later in day.
[2018-10-27 16:00] VITALS: BP 141/95
--- NOTE | 2018-10-27 16:30 | NUR ---
Discharged to boarder status.
== END 2018-10-27 16:30 | disposition home or self-care (01) | DRG 787 ==
LOC: LDRP 05:53
PROVIDERS: ADMIT Obstetrics & Gynecology; ATTEND Obstetrics & Gynecology
PROC: 10D00Z1 Extraction of Products of Conception, Low, Open Approach (ICD-10-PCS; principal; 2018-10-25 07:22)
DX: O34.211 Maternal care for low transverse scar from previous cesarean delivery (principal); O34.13 Maternal care for benign tumor of corpus uteri, third trimester; D25.2 Subserosal leiomyoma of uterus; O90.81 Anemia of the puerperium; D62 Acute posthemorrhagic anemia; Z37.0 Single live birth; Z3A.39 39 weeks gestation of pregnancy
CPT/HCPCS: 36415; 85025; 86850; 86900; 86901; 87081; 94664

== ENCOUNTER → 2020-08-29 | Outpatient (CLI) | payer BC ==
[~2020-08-29] MED LIST changes: -CITRIC ACID/SOB CIT (BICITRA) 30 ML UDC ONE; -FAMOTIDINE 20MG/2ML IV (PEPCID) ONE; +IBUP-844 PO; -METOCLOPRAMIDE INJ 10 MG/2 ML (REGLAN) ONE; -ceFAZolin 2 GM/50 ML NS 50 ML ONE
--- NOTE | 2020-08-29 13:44 | Diagnostic Imaging Report ---
INDICATION: Anatomy scan. , 20 weeks 1 day. TECHNIQUE: Multiple real-time grayscale images were obtained over the gravid uterus. COMPARISON: None FINDINGS: There is a single live intrauterine gestation in variable position, beginning cephalic and ending in transverse. The cervix is measured at 5.4 cm. The placenta is posterior with the tip near the internal os may be low-lying or partial previa. Amniotic fluid appears normal, with at least one vertical pocket measuring 5.7 cm. The stomach is seen. A four-chamber heart is seen on cine. heart rate measures 160 BPM. The bladder is seen. A three-vessel cord is demonstrated with 2 umbilical arteries, and also seen transverse with blood flow. The cord insertion is seen. The kidneys are seen. The cerebellum is seen and appears normal. The cisterna magna and ventricles appear normal. The profile is seen. The upper and lower spine are seen. Two upper and two lower extremities are present. Biometrical measurements are as follows: Biparietal 4.88 cm, age 20 weeks 6 days. Head circumference 17.63 cm, age 20 weeks 1 days. Abdominal circumference 15.29 cm, age 20 weeks 4 days. Femur length 3.35 cm, age 20 weeks 4 days. Sonographic estimate age: 20 weeks 4 days. Sonographic estimated date of delivery: 01/12/2021. Estimated Weight: 356 gm (+/- 52 gm). LMP percentile: 64%. heart rate: 160 beats per minute. number: 1 of 1. IMPRESSION: 1. Single live intrauterine gestation measuring at 20 weeks and 4 days, within range of the clinical dates. 2. Low-lying placenta versus partial previa. Recommend continued ultrasound follow-up. 3. Outflow tracts and nose/lips are not well seen. No anatomic abnormality is identified. Dictated by: Dictated on workstation # [id number]
== END ==
LOC: RAD 09:56
PROVIDERS: ATTEND Nurse Practitioner Women's Health
DX: Z34.02 Encounter for supervision of normal first pregnancy, second trimester (principal); Z3A.20 20 weeks gestation of pregnancy
CPT/HCPCS: 76805

== ENCOUNTER 2021-01-03 05:37 | Outpatient (CLI) | payer BC ==
[~2021-01-03] VITALS: Ht 154.9 cm; Wt 72.6 kg
[2021-01-03] MEDS ORDERED: DIPH25TA49 PO (10:52)
[2021-01-03] MEDS ORDERED: PNV1TABL9 PO (10:52)
[2021-01-03] MEDS ORDERED: CETI10TA49 PO (10:53)
== END 2021-01-03 11:03 | disposition home or self-care (01) ==
LOC: PREOP 05:37
PROVIDERS: ATTEND Obstetrics & Gynecology
DX: Z01.818 Encounter for other preprocedural examination (principal)

== ENCOUNTER 2021-01-10 06:09 | Inpatient (IN) | payer BC ==
[2021-01-10] VITALS (9 sets, daily range): BP systolic 103–121; BP diastolic 48–79
[~2021-01-10] VITALS: Ht 154.9 cm; Wt 83.1 kg
[~2021-01-10 06:09] MED LIST changes: +CETI10TA49 PO; +DIPH25TA49 PO; +PNV1TABL9 PO
[2021-01-10] MEDS ORDERED: ceFAZolin 2 GM IV Premixed 50 ML IV ONE (06:15)
[2021-01-10] MEDS ORDERED: FAMOTIDINE 20MG/2ML IV (PEPCID) IV ONE (06:30)
[2021-01-10] MEDS ORDERED: CITRIC ACID/SOB CIT (BICITRA) 30 ML UDC PO ONE (06:30)
[2021-01-10] MEDS ORDERED: METOCLOPRAMIDE INJ 10 MG/2 ML (REGLAN) IV ONE (06:30)
[2021-01-10] MEDS ORDERED: LACTATED RINGERS 1,000 ML IV PRN (06:30)
[2021-01-10] MEDS ORDERED: CATHETER FLUSH 10 ML SYR IV PRN (06:30)
[2021-01-10] MEDS: LACTATED RINGERS 1,000 ML IV PRN ×2 (06:33→09:01)
[2021-01-10 06:41] LABS: BASOPHILS % (AUTO) 0 % (0-10); EOSINOPHILS # (AUTO) 0.1 10^3/uL (0.0-0.3); EOSINOPHILS % (AUTO) 1 % (0-10); HEMATOCRIT 38 % (35-52); HEMOGLOBIN 12.5 g/dL (11.5-16.0); LYMPHOCYTES # (AUTO) 2.6 10^3/uL (1.0-4.0); LYMPHOCYTES % (AUTO) 19 % (12-44); MEAN CORPUSCULAR HEMOGLOBIN 30 pg (25-34); MEAN CORPUSCULAR HGB CONC 33 g/dL (32-36); MEAN CORPUSCULAR VOLUME 90 fL (80-99); MONOCYTES # (AUTO) 1.1 10^3/uL (0.0-1.0); MONOCYTES % (AUTO) 8 % (0-12); NEUTROPHILS # (AUTO) 9.6 10^3/uL (1.8-7.8); NEUTROPHILS % (AUTO) 71 % (42-75); PLATELET COUNT 209 10^3/uL (130-400); WHITE BLOOD COUNT 13.5 10^3/uL (4.3-11.0)
[2021-01-10] MEDS ORDERED: fentaNYL INJ 100 MCG/2 ML AMP ONE (07:13)
--- NOTE | 2021-01-10 07:24 | History & Physical-OB ---
OB - Chief Complaint & HPI Date/Time Date of Admission: Date of Admission: Jan 10, 2021 at 06:09 Date seen by a Provider: Jan 10, 2021 Time Seen by a Provider: 07:05 Chief Complaint/History OB-Reason for Admission/Chief: Section Hx : 3 Hx Para: 2 Expected Date of Delivery: Jan 15, 2021 Gestational Age in Weeks: 39 Gestational Age in Days: 2 Indication for : desires repeat Admission Nurse Assessment Rev: Yes Other A pos Antibody neg RI RPR NR HBsAg NR HIV NR GC neg GBS neg Allergies and Home Medications Allergies Coded Allergies: No Known Drug Allergies (Unverified , 10/18/18) Patient Home Medication List Home Medication List Reviewed: Yes Cetirizine HCl (Zyrtec) 10 Mg Tablet, 10 MG PO DAILY PRN, (Reported) Entered as Reported by: MEDARDO QUINTERO on 01/03/21 1053 Last Action: Reviewed Pnv Cmb#21/Iron/Folic Acid ( Complete Caplet) 1 Each Tablet, 1 EACH PO DAILY, (Reported) Entered as Reported by: MEDARDO QUINTERO on 01/03/21 105 Last Action: Reviewed Discontinued Medications Diphenhydramine HCl (Allergy Medicine) 25 Mg Tablet, 25 MG PO DAILY PRN, (Reported) Discontinued Reason: No Longer Taking Entered as Reported by: MEDARDO QUINTERO on 01/03/21 1052 Docusate Sodium (Docusate Sodium) 100 Mg Capsule, 100 MG PO BID PRN for CONSTIPATION-1ST LINE Discontinued Reason: No Longer Taking Prescribed by: STEVIE VÁSQUEZ on 10/25/18 0725 Hydrocodone Bit/Acetaminophen (Lortab 5 Mg Tablet) 1 Tab Tab, 2 TAB PO Q6HR PRN for PAIN-MODERATE Discontinued Reason: No Longer Taking Prescribed by: STEVIE VÁSQUEZ on 10/25/18 07 Ibuprofen (Ibu) 600 Mg Tablet, 600 MG PO Q6HR Discontinued Reason: No Longer Taking Prescribed by: STEVIE VÁSQUEZ on 10/25/18 07 Vit/Iron Fumarate/FA (Classic Tablet) 1 Each Tablet, 1 EACH PO DAILY, (Reported) Discontinued Reason: No Longer Taking Entered as Reported by: JAQUAN HAILE on 10/18/18 0949 OB - History Hx of Present Care: Yes Ultrasounds: Normal mid trimester US Obstetrical Complications: None Medical Complications: None Delivery History Hx Blood Disorders: No Adverse Rxn to Tranfusion: No (N/A) Patient Past Medical History na Social History/Family History 2nd Hand Smoke Exposure: No Immunizations Hepatitis A: Yes Hepatitis B: Yes Tetanus Booster (TDap): Less than 5yrs Date of Influenza Vaccine: Jan 04, 2015 OB - Admission Exam Physical Exam HEENT: NCAT Heart: Rhythm Normal Lungs: Clear Abdomen: Gravid Extremities: Normal Reflexes: Normal Heart Rate: 130's Accelerations: Accelerations Present Decelerations: No Decelerations Short Term Variability: Present 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 Variability: Average (6-25) Contractions on Admission: >10 Minutes Apart Intensity: Mild Labs Laboratory Tests Test 01/10/21 06:20 Range/Units White Blood Count 13.5 H 4.3-11.0 10^3/uL Red Blood Count 4.18 3.80-5.11 10^6/uL Hemoglobin 12.5 11.5-16.0 g/dL Hematocrit 38 35-52 % Mean Corpuscular Volume 90 80-99 fL Mean Corpuscular Hemoglobin 30 25-34 pg Mean Corpuscular Hemoglobin Concent 33 32-36 g/dL Red Cell Distribution Width 13.2 10.0-14.5 % Platelet Count 209 130-400 10^3/uL Mean Platelet Volume 12.0 9.0-12.2 fL Immature Granulocyte % (Auto) 1 % Neutrophils (%) (Auto) 71 42-75 % Lymphocytes (%) (Auto) 19 12-44 % Monocytes (%) (Auto) 8 0-12 % Eosinophils (%) (Auto) 1 0-10 % Basophils (%) (Auto) 0 0-10 % Neutrophils # (Auto) 9.6 H 1.8-7.8 10^3/uL Lymphocytes # (Auto) 2.6 1.0-4.0 10^3/uL Monocytes # (Auto) 1.1 H 0.0-1.0 10^3/uL Eosinophils # (Auto) 0.1 0.0-0.3 10^3/uL Basophils # (Auto) 0.0 0.0-0.1 10^3/uL Immature Granulocyte # (Auto) 0.1 0.0-0.1 10^3/uL OB - Assessment/Plan/Diagnosis Assessment Assessment: section Admission Dx 35 yo @ 39 weeks Previous x 2 Admission Status: Inpatient Order (span 2 midnights) Reason for Inpatient Admission: Repeat Plan Plan: Section STEVIE VÁSQUEZ DO Jan 10, 2021 07:24
[2021-01-10] MEDS ORDERED: NALOXONE 0.4 MG/ML 1 ML (NARCAN) VIAL IV PRN (07:30)
[2021-01-10] MEDS ORDERED: ONDANSETRON 4 MG/2 ML (SDV) Z0FRAN IVP PRN (07:30)
[2021-01-10] MEDS ORDERED: OXYTOCIN PRE-MIX DRIP 500 ML IV SCH (07:30)
[2021-01-10] MEDS ORDERED: TETANUS,DIPTH,PERTUSS P/F (BOOSTRIX) 0.5 ML VIAL IM SCH (07:30)
[2021-01-10] MEDS ORDERED: MEASLES,MUMPS,RUBELLA 1 EA INJ SC SCH (07:30)
[2021-01-10] MEDS ORDERED: BUPIVACAINE 0.5% 30 ML (SENSORCAINE) VIAL ONE (09:17)
[2021-01-10] MEDS ORDERED: OXYTOCIN PRE-MIX DRIP 500 ML IV ONE (09:24)
[2021-01-10] MEDS ORDERED: HYDROcodone/APAP 5 MG/325 MG (LORTAB) TAB PO PRN (10:00)
[2021-01-10] MEDS: KETOROLAC 30 MG/ML VIAL IV SCH ×2 (12:09→18:35)
[2021-01-10] MEDS ORDERED: CATHETER FLUSH 10 ML SYR IV SCH (14:00)
--- NOTE | 2021-01-10 15:05 | OPERATIVE REPORT ---
DATE OF SERVICE: PREOPERATIVE DIAGNOSES: 1. A 35-year-old G3, P2 at 39 weeks gestation. 2. Previous section. POSTOPERATIVE DIAGNOSES: 1. A 35-year-old G3, P2 at 39 weeks gestation. 2. Previous section. PROCEDURE PERFORMED: Repeat low transverse section. SURGEON: Ramon Vásquez DO. SEEING EYE DOG TRAINER: Alena Jenkins DNP, was necessary for manipulation and retraction throughout the procedure. ANESTHESIA: Spinal. ESTIMATED BLOOD LOSS: 500 mL. URINE OUTPUT: 100 mL clear at the end of the procedure. FLUIDS: 1000 mL lactated Ringer's solution. FINDINGS: A live female infant weighing 8 pounds even. Grossly normal appearing uterus, bilateral fallopian tubes and ovaries. SPECIMEN SENT: None. INDICATIONS FOR PROCEDURE: This 35-year-old female is a patient, who had sought care in my office. Her was uncomplicated with the exception of wanting to proceed with repeat . She had two prior cesareans. Risks of the procedure were discussed in her preoperative visit including risk of bleeding, infection, damage to the surrounding structures including, but not limited to bowel, bladder, ureter, kidneys, possible need for operation, postoperative complications that may occur, risk from anesthesia, recovery timeframe, hospital stay and even . After everything was discussed with the patient in detail, consent was obtained in the preoperative area and the patient was taken to the operating room. OPERATIVE REPORT IN DETAIL: Once in the operating room, spinal analgesia was found to be adequate. She was placed in the supine position with a leftward tilt and prepped and draped in a normal sterile fashion. A timeout was performed and anesthesia was tested. I then made a Pfannenstiel skin incision through a previously existing scar using knife and carried down to the underlying fascia using Bovie cautery and the fascial incision extended laterally using Bovie cautery. The superior aspect of the fascial incision was then grasped with Micha clamps, tented up and dissected off the underlying rectus muscles. The inferior aspect of the fascial incision was then grasped with Micha clamps, tented up and dissected off the underlying rectus muscles. Rectus muscle was then dissected down the midline, which exposed the peritoneum, which I entered bluntly and extended using blunt traction. Jose ring retractor was placed in the peritoneal incision, which offers excellent lateral sidewall retraction. I identified the lower uterine segment, which was found to be thinned out and make a low transverse incision to the vesicouterine peritoneum and bluntly dissected off the lower uterine segment, creating a bladder flap. I then proceeded with my myotomy until membranes were visualized, at which point I extended the uterine incision laterally and superiorly using bandage scissors. Amniotomy was then performed using Allis clamp. Clear fluid was noted. The was then found in a vertex presentation, head is elevated up to the incision, where the head was delivered through the incision. The nares and oropharynx were bulb suctioned. Nuchal cord was reduced x1. Anterior and posterior shoulders were delivered. The infant was then brought to the operative field, where the cord was duly clamped and cut and was handed off to waiting nurses in attendance. Cord blood was collected. A 3-vessel cord with intact placenta was delivered spontaneously thereafter. IV Pitocin is initiated to facilitate uterine contraction. Uterine fundus became firm by manual massage. The uterus was then exteriorized and cleared of all endometrial clots and debris. I then proceeded with closing the uterine incision using 0 Vicryl suture in a running locked fashion. Second layer of imbricating 0 Monocryl was placed. Excellent hemostasis was noted after doing this. I then placed the uterus back in the pelvis and copiously irrigated the pelvis using normal saline. Once again, there was no active bleeding noted from any of my dissection planes. I placed Interceed antiadhesive over my low transverse incision. I then removed the Jose ring retractor. I reapproximated the peritoneum using 3-0 Vicryl suture in a running fashion. The rectus muscle was reapproximated using a 3-0 Vicryl suture in an interrupted fashion. The fascia was reapproximated using 0 Vicryl suture in a running fashion. The subcutaneous tissue was reapproximated using 3-0 plain interrupted subcutaneous stitch and skin was reapproximated using 4-0 Monocryl running subcuticular. Dermabond was applied to the incision and sterile dressing with adhesive white tape. The patient tolerated the procedure well and was sent to recovery area in a stable condition. Lap and sponge counts were correct at the end of the procedure. Instrument counts were correct as well. Two grams of Ancef were given preoperatively for infection prophylaxis. Job ID: [id number] DocumentID: [id number] Dictated Date: 01/10/2021 10:22:30 Hydraulic Billet Maker Date: 01/10/2021 15:05:03 Dictated By: RAMON VÁSQUEZ DO
[2021-01-10] MEDS: DOCUSATE SODIUM 100 MG (COLACE) CAP PO SCH (21:36)
[2021-01-11] MEDS: KETOROLAC 30 MG/ML VIAL IV SCH ×2 (00:02→05:38)
[2021-01-11 00:05] VITALS: BP 124/73
[2021-01-11] MEDS ORDERED: SIMETHICONE 80 MG (MYLICON) CHEW PO ONE (00:15)
[2021-01-11 04:30] VITALS: BP 116/68
[2021-01-11 05:33] LABS: BASOPHILS % (AUTO) 0 % (0-10); EOSINOPHILS % (AUTO) 0 % (0-10); HEMATOCRIT 32 % (35-52); HEMOGLOBIN 10.5 g/dL (11.5-16.0); LYMPHOCYTES # (AUTO) 1.7 10^3/uL (1.0-4.0); LYMPHOCYTES % (AUTO) 13 % (12-44); MEAN CORPUSCULAR HEMOGLOBIN 30 pg (25-34); MEAN CORPUSCULAR HGB CONC 33 g/dL (32-36); MEAN CORPUSCULAR VOLUME 93 fL (80-99); MEAN PLATELET VOLUME 12.1 fL (9.0-12.2); MONOCYTES # (AUTO) 0.9 10^3/uL (0.0-1.0); MONOCYTES % (AUTO) 7 % (0-12); NEUTROPHILS # (AUTO) 10.3 10^3/uL (1.8-7.8); NEUTROPHILS % (AUTO) 79 % (42-75); PLATELET COUNT 166 10^3/uL (130-400); WHITE BLOOD COUNT 13.1 10^3/uL (4.3-11.0)
--- NOTE | 2021-01-11 08:12 | Postpartum Progress Note ---
Note Note Day # 1 Subjective: Patient is without complaints. Ambulating, voiding. Tolerating a regular diet without nausea or vomiting. Normal lochia. Pain is well controlled with oral pain medications. Objective: Physical Exam: General - Alert and oriented, no apparent distress Abdomen - Soft, appropriately tender to palpation, non-distended, fundus firm at umbilicus Extremities - no edema, negative Michael's bilaterally Incision- c/d/i Assessment: POD 1 RLTCS Acute blood loss anemia Plan: Routine care. Encourage breast feeding. Encourage ambulation. Ferrous sulfate supplementation. Plan for discharge tomorrow Vitals - Labs Vital Signs - I&O Vital Signs Date Time Temp Pulse Resp B/P (MAP) Pulse Ox O2 Delivery O2 Flow Rate FiO2 01/11/21 04:30 36.3 83 18 116/68 (84) 96 Room Air 01/11/21 00:05 36.5 81 18 124/73 (90) 96 Room Air 01/10/21 19:49 36.6 95 18 115/61 (79) 98 Room Air 01/10/21 15:20 36.1 92 16 121/79 (93) 97 Room Air 01/10/21 12:09 36.6 01/10/21 12:00 36.6 84 16 118/67 (84) 96 Room Air 01/10/21 11:15 36.5 80 16 113/68 (83) 99 Room Air 01/10/21 10:45 Room Air 01/10/21 10:45 36.2 16 108/71 (83) 100 Room Air 01/10/21 10:30 36.2 16 114/64 (81) 100 Room Air 01/10/21 10:30 Room Air 01/10/21 10:15 Room Air 01/10/21 10:15 36.3 16 108/48 (68) 100 Room Air 01/10/21 10:05 Room Air 01/10/21 10:05 36.5 16 108/71 (83) 100 Room Air I & O 01/11/21 07:00 Intake Total 3600 ml Output Total 4225 ml Balance -625 ml Labs Laboratory Tests 01/11/21 05:05: White Blood Count 13.1H, Red Blood Count 3.48L, Hemoglobin 10.5L, Hematocrit 32L , Mean Corpuscular Volume 93, Mean Corpuscular Hemoglobin 30, Mean Corpuscular Hemoglobin Concent 33, Red Cell Distribution Width 13.3, Platelet Count 166, Mean Platelet Volume 12.1, Immature Granulocyte % (Auto) 1, Neutrophils (%) (Auto) 79H, Lymphocytes (%) (Auto) 13, Monocytes (%) (Auto) 7, Eosinophils (%) (Auto) 0, Basophils (%) (Auto) 0, Neutrophils # (Auto) 10.3H, Lymphocytes # (Auto) 1.7, Monocytes # (Auto) 0.9, Eosinophils # (Auto) 0.0, Basophils # (Auto) 0.0, Immature Granulocyte # (Auto) 0.1 STEVIE VÁSQUEZ DO Jan 11, 2021 08:12
--- NOTE | 2021-01-11 08:13 | Discharge Inst-Women's Service ---
Discharge Inst-Women's Serv Depart Medication/Instructions New, Converted or Re-Newed RX: RX on Chart Final Diagnosis POD 2 RLTCS, Acute blood loss anemia Problems Reviewed?: Yes Consults/Follow Up Additional Follow Up: Yes Orders/Referrals Dr. Lin in 7-10 days and in 6 weeks Activity Activity: Activity as Tolerated Driving Instructions: No Driving for 1 Week NO SMOKING: NO SMOKING Nothing Inside Vagina: No Douching, No [place], No Tampons Diet Discharge Diet: No Restrictions Symptoms to Report to : Bleeding Excessive, Pain Increased, Fever Over 101 Degrees F, Vaginal Bleeding Increase, Questions/Concerns For Any Problems or Questions: Contact Your Physician Skin/Wound Care Infection Signs and Symptoms: Increased Redness, Foul Odor of Wound, Increased Drainage, Skin Itchy or Has a Rash, Increased Swelling, Temperature Above 101 F Operative Area Clean and Dry: Keep Incision Clean/Dry Stitches/[place]/Dermabond: Dermabond, Care of Stitches Bathing Instructions: STEVIE Davies DO Jan 11, 2021 08:13
[2021-01-11] MEDS ORDERED: IBUP-844 PO (08:15)
[2021-01-11] MEDS ORDERED: ACHD5005 PO (08:15)
[2021-01-11] MEDS ORDERED: DOCU100C37 PO (08:15)
[2021-01-11 09:50] VITALS: BP 118/71
[2021-01-11] MEDS: DOCUSATE SODIUM 100 MG (COLACE) CAP PO SCH ×3 (11:49→21:53)
[2021-01-11] MEDS: IBUPROFEN 600 MG (MOTRIN) TAB PO SCH ×3 (11:49→23:07)
--- NOTE | 2021-01-11 15:27 | Anesthesia-Regional Post-Op ---
Regional Patient Condition Mental Status: Alert, Oriented x3 Circulation: Same as Pre-Op Headache: Absent Sensation: Full Recovery Motor Block: Absent Post Op Complications Complications None Follow Up Care/Instructions Patient Instructions None needed. Anesthesia/Patient Condition Patient is doing well, no complaints, stable vital signs, no apparent adverse anesthesia problems. CHARIS TORRES DO Jan 11, 2021 15:27
[2021-01-11 18:07] VITALS: BP 125/83
[2021-01-11 23:07] VITALS: BP 133/75
[2021-01-12 06:52] VITALS: BP 124/79
[2021-01-12] MEDS: IBUPROFEN 600 MG (MOTRIN) TAB PO SCH ×2 (06:52→13:24)
--- NOTE | 2021-01-12 09:47 | Postpartum Progress Note ---
Note Note Day # 2 Subjective: Patient is without complaints. Ambulating, voiding. Tolerating a regular diet without nausea or vomiting. Normal lochia. Pain is well controlled with oral pain medications. Objective: Physical Exam: General - Alert and oriented, no apparent distress Abdomen - Soft, appropriately tender to palpation, non-distended, fundus firm at umbilicus Extremities - no edema, negative Michael's bilaterally Incision- c/d/i Assessment: POD 2 RLTCS Acute blood loss anemia Plan: Routine care. Encourage breast feeding. Encourage ambulation. Ferrous sulfate supplementation. Plan for discharge today Vitals - Labs Vital Signs - I&O Vital Signs Date Time Temp Pulse Resp B/P (MAP) Pulse Ox O2 Delivery O2 Flow Rate FiO2 01/12/21 06:52 36.6 85 18 124/79 (94) 98 Room Air 01/11/21 23:07 36.6 79 18 133/75 (94) 98 Room Air 01/11/21 18:07 36.4 88 18 125/83 (97) 98 Room Air 01/11/21 09:50 36.3 95 18 118/71 (87) 98 Room Air I & O 01/12/21 07:00 Intake Total 600 ml Balance 600 ml STEVIE VÁSQUEZ DO Jan 12, 2021 09:47
[2021-01-12] MEDS: DOCUSATE SODIUM 100 MG (COLACE) CAP PO SCH (10:52)
[2021-01-12 11:00] VITALS: BP 122/67
[2021-01-12 14:07] VITALS: BP 122/67
== END 2021-01-12 14:00 | disposition home or self-care (01) | DRG 787 ==
LOC: LDRP 06:09
PROVIDERS: ADMIT Obstetrics & Gynecology; ATTEND Obstetrics & Gynecology
PROC: 10D00Z1 Extraction of Products of Conception, Low, Open Approach (ICD-10-PCS; principal; 2021-01-10 08:42)
DX: O34.211 Maternal care for low transverse scar from previous cesarean delivery (principal); D62 Acute posthemorrhagic anemia; Z3A.39 39 weeks gestation of pregnancy; Z37.0 Single live birth; O90.81 Anemia of the puerperium; O69.81X0 Labor and delivery complicated by cord around neck, without compression, not applicable or unspecified
CPT/HCPCS: 36415; 85025; 86850; 86900; 86901; 94664